=== PATIENT | male | born 1970 | race Caucasian/White ===

== ENCOUNTER 2017-01-18 07:24 | Emergency (ER) | payer OTHER ==
--- NOTE | 2017-01-18 08:04 | ED.ADGEN ---
Past History Past Medical History: No Pertinent History Past Surgical History: Other Alcohol Use: Rarely Drug Use: None Adult General HPI HPI Patient is a 46-year-old male presents emergency department planing of right flank pain. He has had this intermittently for the last 2 weeks. He was seen by his primary care physician 2 days ago where urinalysis revealed blood and he was consequently scheduled for an outpatient CT scan to evaluate for kidney stones. However, the patient woke up this morning with significant right flank pain and discomfort emergency department. He denies any fevers, chills, nausea, vomiting. He defers on any pain medicine right now. He does note that it is difficult to find a position of comfort. He does not have a history of kidney stones. Review of Systems Review of Systems Constitutional: Denies fever or chills [] Eyes: Denies change in visual acuity, redness, or eye pain [] HENT: Denies nasal congestion or sore throat [] Respiratory: Denies cough or shortness of breath [] Cardiovascular: No additional information not addressed in HPI [] GI: Denies abdominal pain, nausea, vomiting, bloody stools or diarrhea [] : Denies dysuria or hematuria [] Musculoskeletal: Denies back pain or joint pain [] Integument: Denies rash or skin lesions [] Neurologic: Denies headache, focal weakness or sensory changes [] Endocrine: Denies polyuria or polydipsia [] Allergies Allergies Allergies Coded Allergies Type Severity Reaction Last Updated Verified No Known Drug Allergies 01/18/17 No Physical Exam Physical Exam Constitutional: Well developed, well nourished, mild acute distress, non-toxic appearance. [] HENT: Normocephalic, atraumatic, bilateral external ears normal, oropharynx moist, no oral exudates, nose normal. [] Eyes: PERRLA, EOMI, conjunctiva normal, no discharge. [] Neck: Normal range of motion, no tenderness, supple, no stridor. [] Cardiovascular:Heart rate regular rhythm, no murmur [] Lungs & Thorax: Bilateral breath sounds clear to auscultation [] Abdomen: Bowel sounds normal, soft, no tenderness, no masses, no pulsatile masses. [] Skin: Warm, dry, no erythema, no rash. [] Back: No tenderness, right CVA tenderness. [] Extremities: No tenderness, no cyanosis, no clubbing, ROM intact, no edema. [] Neurologic: Alert and oriented X 3, normal motor function, normal sensory function, no focal deficits noted. [] Psychologic: Affect normal, judgement normal, mood normal. [] Current Patient Data Vital Signs Vital Signs Date Time Temp Pulse Resp B/P Pulse Ox O2 Delivery O2 Flow Rate FiO2 01/18/17 07:29 98.5 66 18 98 Room Air Lab Results Laboratory Tests Test 01/18/17 08:37 01/18/17 08:44 01/18/17 09:34 White Blood Count 9.0x10^3/uL (4.0-11.0) Red Blood Count 5.26x10^6/uL (4.30-5.70) Hemoglobin 16.7g/dL (13.0-17.5) Hematocrit 48.4% (39.0-53.0) Mean Corpuscular Volume 92fL (79-100) Mean Corpuscular Hemoglobin 32pg (25-35) Mean Corpuscular Hemoglobin Concent 35g/dL (31-37) Red Cell Distribution Width 13.5% (11.5-14.5) Platelet Count 314x10^3/uL (140-400) Neutrophils (%) (Auto) 52% (31-73) Lymphocytes (%) (Auto) 34% (24-48) Monocytes (%) (Auto) 9% (0-9) Eosinophils (%) (Auto) 4% (0-3) H Basophils (%) (Auto) 1% (0-3) Neutrophils # (Auto) 4.7x10^3uL (1.8-7.7) Lymphocytes # (Auto) 3.1x10^3/uL (1.0-4.8) Monocytes # (Auto) 0.8x10^3/uL (0.0-1.1) Eosinophils # (Auto) 0.4x10^3/uL (0.0-0.7) Basophils # (Auto) 0.1x10^3/uL (0.0-0.2) Aspartate Amino Transferase (AST) 24U/L (15-37) Alanine Aminotransferase (ALT) 72U/L (16-63) H Alkaline Phosphatase 82U/L (46-116) Lipase 412U/L (73-393) H POC Hemoglobin 17.0gm/dL POC Hematocrit 50% POC Sodium 142mmol/L (135-145) POC Potassium 3.9mmol/L (3.5-5.0) POC Chloride 97mmol/L (98-110) L POC Total CO2 31mmol/L (23-32) Anion Gap 19mmol/L (6-14) H POC Blood Urea Nitrogen 13mg/dL (8-26) POC Creatinine 0.9mg/dL (0.5-1.4) Glucose Level 109mg/dL (60-99) H POC Ionized Calcium ([place]) 1.20mmol/L (1.13-1.32) Urine Collection Type Unknown Urine Color Straw Urine Clarity Clear Urine pH 6.0 Urine Specific [place] <=1.005 Urine Protein Neg (NEG-TRACE) Urine Glucose (UA) Negmg/dL (NEG) Urine Ketones (Stick) Negmg/dL (NEG) Urine Blood Neg (NEG) Urine Nitrite Neg (NEG) Urine Bilirubin Neg (NEG) Urine Urobilinogen Dipstick 0.2mg/dL (0.2 mg/dL) Urine Leukocyte Esterase Neg (NEG) Urine RBC 0/HPF (0-2) Urine WBC 0/HPF (0-4) Urine Squamous Epithelial Cells None/LPF Urine Bacteria 0/HPF (0-FEW) EKG EKG [] Radiology/Procedures Radiology/Procedures CT study of the abdomen and pelvis without contrast Clinical indications: Right-sided flank pain for 2 weeks. Technique: Noncontrast helical CT scanning of the abdomen and pelvis was performed. Without contrast, the sensitivity to detect organ pathology and GI tract pathology is decreased. PQRS Compliance Statement: One or more of the following individualized dose reduction techniques were utilized for this examination: 1. Automated exposure control 2. Adjustment of the mA and/or kV according to patient size 3. Use of iterative reconstruction technique Findings: Diffuse fatty infiltration of the liver is seen. The spleen is not enlarged. The pancreas is homogeneous in appearance on this noncontrast study. Gallbladder is normal and no extra hepatic biliary ductal dilatation is seen. No adrenal mass is evident. No renal mass is seen on either side on this noncontrast study. No urinary tract stone or hydronephrosis or hydroureter is seen. Urinary bladder wall is smooth. No focal aneurysmal dilatation of the abdominal aorta is seen. No enlarged abdominal or pelvic lymphadenopathy is seen. The appendix is normal. No obstructive bowel pattern is evident. No free air or free fluid or inflammatory change is seen. No lung base consolidation is evident. No osteolytic process is seen. Small right inguinal hernia is seen containing fat and no inflammatory change is seen. IMPRESSION: No acute abnormality of the abdomen or pelvis is evident. No urinary tract stone or hydronephrosis or hydroureter is seen. DICTATED AND SIGNED BY: ASHLEIGH BOONE MD DATE: 01/18/17805 CC: LIOR RODRIGUEZ MD ~[] Course & Med Decision Making Course & Med Decision Making Pertinent Labs and Imaging studies reviewed. (See chart for details) Overall, the patient is a reassuring exam. He does have an isolated elevated lipase. Patient is still deferred on any pain medications. At this point I am sending him home with prescriptions for [place] and Zofran to fill as needed. I have asked him to follow-up with his primary care physician in the next 24-48 hours. [] Final Impression Final Impression acute pancreatitis [] Problems: Dragon Disclaimer Dragon Disclaimer This electronic medical record was generated, in whole or in part, using a voice recognition dictation system. LIOR RODRIGUEZ MD Jan 18, 2017 08:04
--- NOTE | 2017-01-18 08:16 | RAD ---
CT study of the abdomen and pelvis without contrast Clinical indications: Right-sided flank pain for 2 weeks. Technique: Noncontrast helical CT scanning of the abdomen and pelvis was performed. Without contrast, the sensitivity to detect organ pathology and GI tract pathology is decreased. PQRS Compliance Statement: One or more of the following individualized dose reduction techniques were utilized for this examination: 1. Automated exposure control 2. Adjustment of the mA and/or kV according to patient size 3. Use of iterative reconstruction technique Findings: Diffuse fatty infiltration of the liver is seen. The spleen is not enlarged. The pancreas is homogeneous in appearance on this noncontrast study. Gallbladder is normal and no extra hepatic biliary ductal dilatation is seen. No adrenal mass is evident. No renal mass is seen on either side on this noncontrast study. No urinary tract stone or hydronephrosis or hydroureter is seen. Urinary bladder wall is smooth. No focal aneurysmal dilatation of the abdominal aorta is seen. No enlarged abdominal or pelvic lymphadenopathy is seen. The appendix is normal. No obstructive bowel pattern is evident. No free air or free fluid or inflammatory change is seen. No lung base consolidation is evident. No osteolytic process is seen. Small right inguinal hernia is seen containing fat and no inflammatory change is seen. IMPRESSION: No acute abnormality of the abdomen or pelvis is evident. No urinary tract stone or hydronephrosis or hydroureter is seen.
[2017-01-18 08:47] LABS: POTASSIUM ISTAT 3.9 mmol/L (3.5-5.0)
[2017-01-18 09:05] LABS: BASO # 0.1 x10^3/uL (0.0-0.2); BASO % 1 % (0-3); EOS # 0.4 x10^3/uL (0.0-0.7); EOS % 4 % (0-3); HEMATOCRIT 48.4 % (39.0-53.0); HEMOGLOBIN 16.7 g/dL (13.0-17.5); LYMPH # 3.1 x10^3/uL (1.0-4.8); LYMPH % 34 % (24-48); MEAN CORPUSCULAR HEMOGLOBIN 32 pg (25-35); MEAN CORPUSCULAR HGB CONC 35 g/dL (31-37); MEAN CORPUSCULAR VOLUME 92 fL (79-100); MONO # 0.8 x10^3/uL (0.0-1.1); MONO % 9 % (0-9); NEUT # 4.7 x10^3uL (1.8-7.7); NEUT % 52 % (31-73); PLATELET COUNT 314 x10^3/uL (140-400); RED BLOOD COUNT 5.26 x10^6/uL (4.30-5.70); RED CELL DISTRIBUTION WIDTH 13.5 % (11.5-14.5)
[2017-01-18 09:20] LABS: ALK PHOS 82 U/L (46-116); ALT (SGPT) 72 U/L (16-63); AST (SGOT) 24 U/L (15-37); LIPASE 412 U/L (73-393)
[2017-01-18 09:49] LABS: BILIRUBIN,URINE NEG (NEG); CLARITY,URINE CLEAR; COLOR,URINE STRAW; GLUCOSE,URINE NEG (NEG); NITRITE,URINE NEG (NEG); UROBILINOGEN,URINE 0.2 mg/dL (0.2 mg/dL)
[2017-01-18 09:50] LABS: BACTERIA,URINE 0 /HPF (0-FEW); RBC,URINE 0 /HPF (0-2); WBC,URINE 0 /HPF (0-4)
[2017-01-18 10:00] VITALS: BP 124/70
[2017-01-18] MEDS ORDERED: ONDA4TAB10 PO (10:06)
[2017-01-18] MEDS ORDERED: HYDR-971 PO (10:06)
== END 2017-01-18 10:13 | disposition home or self-care (01) ==
LOC: ER 07:24
DX: K85.90 Acute pancreatitis without necrosis or infection, unspecified (principal)
CPT/HCPCS: 36415; 74176; 80047; 81001; 83690; 84075; 84450; 84460; 85027; 99285-25